=== PATIENT | female | born 1965 | race Caucasian/White ===

== ENCOUNTER 2019-08-06 23:03 | Emergency (ER) | payer BC ==
[2019-08-06] MEDS ORDERED: KETOROLAC TROMETHAMINE 60 MG/2 ML VIAL IM ONE (23:06)
[2019-08-06 23:10] VITALS: BP 154/84; PULSE 87; TEMP 98.3; BMI 30.2
[2019-08-06] MEDS ORDERED: SILVER SULFADIAZINE 1% TOP CREAM 50 GM JAR TP ONE (23:14)
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
== END 2019-08-07 01:33 | disposition home or self-care (01) ==
LOC: FER 23:03
PROC: 2W2TX4Z Dressing of Left Foot using Bandage (ICD-10-PCS; principal; 2019-08-06)
PROC: 3E0233Z Introduction of Anti-inflammatory into Muscle, Percutaneous Approach (ICD-10-PCS; 2019-08-06)
DX: T25.222A Burn of second degree of left foot, initial encounter (principal); T31.0 Burns involving less than 10% of body surface; X11.8XXA Contact with other hot tap-water, initial encounter; Y93.9 Activity, unspecified; Y92.9 Unspecified place or not applicable
CPT/HCPCS: 99281-25

== ENCOUNTER 2022-10-11 20:20 | Emergency (ER) | payer BC, OTHER ==
[2022-10-11 20:44] VITALS: BP 124/66; PULSE 88; RESP 17; TEMP 97.5; BMI 26.9
== END 2022-10-11 21:20 | disposition home or self-care (01) ==
LOC: FER 20:20
DX: S61.212A Laceration without foreign body of right middle finger without damage to nail, initial encounter (principal); W26.8XXA Contact with other sharp object(s), not elsewhere classified, initial encounter
CPT/HCPCS: 99282-25